=== PATIENT | male | born 1975 | race Caucasian/White ===

== ENCOUNTER 2023-01-18 10:59 | Emergency (ER) | payer OTHER ==
[2023-01-18] MEDS ORDERED: OXYMETAZOLINE 0.05% NASL SPRAY 1 SPRAY BOTTLE NASAL STA (11:16)
--- NOTE | 2023-01-18 11:28 | ED ---
ENT HPI - General Chief complaint: ENT Stated complaint: nose bleed Time Seen by Provider: 01/18/23 11:11 Source: patient, RN notes reviewed Mode of arrival: ambulatory Limitations: no limitations - History of Present Illness Initial comments: This is a 47 year old male who presents to the emergency department for a nosebleed. States that this started approximately 40 minutes prior to arrival. Denies any injuries. States that he felt like his nose was running, and noticed that it was blood. This was coming out of both nostrils. Denies any injuries. He is not taking any blood thinners. Denies any history of similar symptoms in the past. Does not currently think that it is running down his throat. States that it could be due to dryness and weather changes. MD complaint: epistaxis - Related Data Home Medications Medication Instructions Recorded Confirmed No Known Home Medications 08/26/15 08/26/15 Allergies Allergy/AdvReac Type Severity Reaction Status Date / Time No Known Allergies Allergy Verified 01/18/23 11:14 Review of Systems ROS Statement: Those systems with pertinent positive or pertinent negative responses have been documented in the HPI. ROS Other: All systems not noted in ROS Statement are negative. Past Medical History Past Medical History: No Reported History History of Any Multi-Drug Resistant Organisms: None Reported Past Surgical History: Orthopedic Surgery Additional Past Surgical History / Comment(s): clef palate repair, right hand orthopedic surgery (2000) Past Psychological History: No Psychological Hx Reported Smoking Status: Never smoker Past Alcohol Use History: None Reported, Daily Past Drug Use History: Marijuana General Exam Limitations: no limitations General appearance: alert, in no apparent distress Head exam: Present: atraumatic, normocephalic, normal inspection ENT exam: Present: other (Fresh blood in the bilateral nares. No evidence of a septal hematoma. No obvious lacerations or abrasions.) Respiratory exam: Present: normal lung sounds bilaterally. Absent: respiratory distress, wheezes, rales, rhonchi, stridor Cardiovascular Exam: Present: regular rate, normal rhythm, normal heart sounds. Absent: systolic murmur, diastolic murmur, rubs, gallop, clicks Neurological exam: Present: alert, oriented X3, CN II-XII intact Psychiatric exam: Present: normal affect, normal mood Skin exam: Present: warm, dry, intact, normal color. Absent: rash Course Vital Signs 01/18/23 01/18/23 01/18/23 11:20 12:17 12:37 Temperature 98.4 F 98.1 F Pulse Rate 86 76 82 Respiratory 18 18 18 Rate Blood Pressure 150/104 153/87 148/89 O2 Sat by Pulse 96 97 97 Oximetry Medical Decision Making - Medical Decision Making This is a 47-year-old male who presents to the emergency department for a nosebleed. Was pt. sent in by a medical professional or institution? @ -No Did you speak to anyone other than the patient for history? @ -No Did you review nursing and triage notes? @ -Yes, and I agree, it is accurate with regards to the patient's symptoms. Were old charts reviewed? @ -No Differential Diagnosis? @ -Differential Epistaxis: Injury, coagulopathy, tumor, AV malformation, dryness, this is not meant to be an all-inclusive list. EKG interpreted by me (3pts min.)? @ -Not obtained X-rays interpreted by me (1pt min.)? @ -Not obtained CT interpreted by me (1pt min.)? @ -Not obtained U/S interpreted by me (1pt. min.)? @ -Not obtained What testing was considered but not performed? (CT, X-rays, U/S, labs)? Why? @ -None What meds were considered but not given? Why? @ -None Did you discuss the management of the patient with other professionals? @ -No Did you reconcile home meds? @ -No Was smoking cessation discussed for >3mins.? @ -No Was critical care preformed (if so, how long)? @ -No Were there social determinants of health that impacted care today? How? (Homelessness, low income, unemployed, alcoholism, drug addiction, transportation, low edu. Level, literacy, decrease access to med. care, intermediate, rehab)? @ -No Was there de-escalation of care discussed even if they declined? (Discuss DNR or withdrawal of care, Hospice)? @ -No What co-morbidities impacted this encounter? (DM, HTN, Smoking, COPD, CAD, Cancer, CVA, Hep., AIDS, mental health diagnosis, sleep apnea, morbid obesity)? @ -None Was patient admitted / discharged? @ -Discharged. On arrival, a nose clamp was applied. This remained in place for about 20 minutes. Afterwards, the bleeding did improve substantially, but was still present to some extent. Oxymetazoline nasal spray was then applied and the nose was reclamped for another 20 minutes. Afterwards, the bleeding resolved. Patient was given the bottle of oxymetazoline nasal spray to go home with. Advised that if the bleeding resumes, he should lean forward, apply the clamp for 20 minutes, and reevaluate. If the bleeding is still present, he can apply another 2 sprays of the oxymetazoline spray in each nostril, and then reclamp the nose for about 20 minutes to see if the bleeding resolves. Advised close follow-up with his primary care provider. Also discussed something like saline nasal spray to help hydrate the nasal passages, especially with the colder weather, which may contribute to the bleeding. Undiagnosed new problem with uncertain prognosis? @ -None Drug Therapy requiring intensive monitoring for toxicity (Heparin, Nitro, Insulin, Cardizem)? @ -None Were any procedures done? @ -None Diagnosis/symptom? @ -Epistaxis Acute, or Chronic, or Acute on Chronic? @ -Acute Uncomplicated (without systemic symptoms) or Complicated (systemic symptoms)? @ -Uncomplicated Side effects of treatment? @ -None Exacerbation, Progression, or Severe Exacerbation] @ -Not applicable Poses a threat to life or bodily function? @ -Unlikely Return precautions reviewed in depth, the patient is instructed to return to the emergency department with any new, worsening, or concerning symptoms. Patient verbalized understanding. This case was discussed in detail with the attending ED physician, Dr. Prealta. Presentation, findings, and treatment plan discussed in detail as well. Disposition Clinical Impression: Epistaxis Disposition: HOME SELF-CARE Instructions (If sedation given, give patient instructions): Nosebleed (ED) Additional Instructions: Return to the emergency department with any new, worsening, or concerning symptoms. If the nose bleeding resumes, make sure your lean your head forward. You can apply 2 sprays of the provided nasal spray in each nostril and then apply the clamp for at least 20 minutes. Follow up with your primary care provider in 1-2 days. Is patient prescribed a controlled substance at d/c from ED?: No Referrals: None,Stated [Primary Care Provider] - 1-2 days
[2023-01-18 12:18] VITALS: RESP 18
[2023-01-18 12:38] VITALS: BP 148/89; PULSE 82; TEMP 98.1
== END 2023-01-18 12:45 | disposition home or self-care (01) ==
LOC: EC 10:59
DX: R04.0 Epistaxis (principal); F12.90 Cannabis use, unspecified, uncomplicated
CPT/HCPCS: 99283